=== PATIENT | female | born 1970 | race Caucasian/White ===

== ENCOUNTER → 2019-06-21 | Outpatient (CLI) | payer SELFPAY | PROVIDERS: Family Provider Family Medicine; Visit Provider Internal Medicine Rheumatology | DX: M16.0 Bilateral primary osteoarthritis of hip (principal) | CPT/HCPCS: 73521; 73562 ×2 ==

== ENCOUNTER → 2019-07-07 10:56 | Outpatient (BNVA) | payer BC, SELFPAY | PROVIDERS: Family Provider Family Medicine; PCP Family Medicine; Visit Provider Internal Medicine Rheumatology | DX: M35.3 Polymyalgia rheumatica (principal); R70.0 Elevated erythrocyte sedimentation rate; Z79.899 Other long term (current) drug therapy; M70.61 Trochanteric bursitis, right hip; M70.62 Trochanteric bursitis, left hip; M10.9 Gout, unspecified; E66.01 Morbid (severe) obesity due to excess calories; Z68.43 Body mass index [BMI] 50.0-59.9, adult; Y93.9 Activity, unspecified | CPT/HCPCS: 36415; 85651; 86140; 99214 ==

== ENCOUNTER → 2019-08-18 14:43 | Outpatient (BNVA) | payer BC, SELFPAY | PROVIDERS: Family Provider Family Medicine; PCP Family Medicine; Visit Provider Internal Medicine Rheumatology | DX: M35.3 Polymyalgia rheumatica (principal); M10.9 Gout, unspecified; Z79.899 Other long term (current) drug therapy; R70.0 Elevated erythrocyte sedimentation rate; M17.0 Bilateral primary osteoarthritis of knee; M16.0 Bilateral primary osteoarthritis of hip | CPT/HCPCS: 36415; 84550; 99214 ==

== ENCOUNTER → 2019-11-30 09:32 | Outpatient (BNVA) | payer BC, SELFPAY | PROVIDERS: Family Provider Family Medicine; PCP Family Medicine; Visit Provider Internal Medicine Rheumatology | DX: Z79.899 Other long term (current) drug therapy (principal) | CPT/HCPCS: 36415; 80076; 82565; 85025; 85651; 86140 ==

== ENCOUNTER → 2019-12-03 10:06 | Outpatient (BNVA) | payer BC, SELFPAY | PROVIDERS: Family Provider Family Medicine; PCP Family Medicine; Visit Provider Internal Medicine Rheumatology | DX: M35.3 Polymyalgia rheumatica (principal); Z79.899 Other long term (current) drug therapy; M10.9 Gout, unspecified; M70.61 Trochanteric bursitis, right hip; M70.62 Trochanteric bursitis, left hip; E66.01 Morbid (severe) obesity due to excess calories; Z68.43 Body mass index [BMI] 50.0-59.9, adult; E55.9 Vitamin D deficiency, unspecified; Y93.9 Activity, unspecified | CPT/HCPCS: 99214 ==

== ENCOUNTER → 2020-03-13 10:56 | Outpatient (BNVA) | payer BC, SELFPAY | PROVIDERS: Family Provider Family Medicine; PCP Family Medicine; Visit Provider Internal Medicine Rheumatology | DX: Z79.899 Other long term (current) drug therapy (principal) | CPT/HCPCS: 36415; 85025 ==

== ENCOUNTER → 2020-03-27 15:10 | Outpatient (BNVA) | payer BC, SELFPAY | PROVIDERS: Family Provider Family Medicine; PCP Family Medicine; Visit Provider Internal Medicine Rheumatology | DX: Z79.899 Other long term (current) drug therapy (principal) | CPT/HCPCS: 36415; 80076; 82565; 85025; 85651; 86140 ==

== ENCOUNTER → 2020-04-17 11:43 | Outpatient (BNVA) | payer BC, SELFPAY | PROVIDERS: Family Provider Family Medicine; PCP Family Medicine; Visit Provider Internal Medicine Rheumatology | DX: M35.3 Polymyalgia rheumatica (principal); Z79.899 Other long term (current) drug therapy; M10.9 Gout, unspecified; E66.01 Morbid (severe) obesity due to excess calories; R70.0 Elevated erythrocyte sedimentation rate; Z68.43 Body mass index [BMI] 50.0-59.9, adult; E55.9 Vitamin D deficiency, unspecified; Z79.52 Long term (current) use of systemic steroids; M17.0 Bilateral primary osteoarthritis of knee; M16.0 Bilateral primary osteoarthritis of hip | CPT/HCPCS: 99214 ==

== ENCOUNTER → 2021-05-15 11:12 | Outpatient (BNVA) | payer BC, SELFPAY | PROVIDERS: Family Provider Family Medicine; PCP Family Medicine; Visit Provider Internal Medicine Rheumatology | DX: M35.3 Polymyalgia rheumatica (principal); M10.9 Gout, unspecified; M15.9 Polyosteoarthritis, unspecified; Z79.899 Other long term (current) drug therapy; Z79.52 Long term (current) use of systemic steroids; E55.9 Vitamin D deficiency, unspecified; E66.9 Obesity, unspecified; Z68.43 Body mass index [BMI] 50.0-59.9, adult | CPT/HCPCS: 99214 ==

== ENCOUNTER 2022-07-15 14:51 | Outpatient (CLI) | payer BC, SELFPAY ==
--- NOTE | 2022-07-15 15:06 | MR_ITS ---
WS: [id number] MRI THORACIC SPINE WITHOUT CONTRAST TECHNIQUE: Sagittal T1, T2 and STIR imaging. Axial T2 imaging. Noncontrast imaging obtained. CLINICAL INFORMATION: MID BACK PAIN COMPARISON: None. FINDINGS: Mild thoracic kyphosis. No acute compression. No high-grade central canal narrowing. Incidental heman gioma T9 vertebral body. Tiny shallow protrusions T5-T6 and T6-T7. No significant disc extrusions or protrusions. Cord signal is normal. Minimal chronic anterior wedging at T4 and T5. No endplate edema. Mild facet arthropathy in the lower thoracic spine. Adrenal glands are normal. Normal caliber thorac ic aorta. Normal prevertebral soft tissues Tiny disc osteophyte protrusions in the cervical spine at C5-C6 and C6-C7 with mild central canal steve nosis. MR/MR thoracic spin wo con* [id number] IMPRESSION: 1. Mild thoracic kyphosis. No acute compression. No high-grade central canal s tenosis. 2. Cord signal is normal. No significant central canal stenosis. 3. Minimal chronic anterior wedging T4 and T5. 4. Tiny disc osteophyte protrusions in the cervical spine at C5-C6 and C6-C7 w ith mild central canal stenosis.
== END 2022-07-15 14:52 | disposition home or self-care (01) ==
PROVIDERS: PCP Family Medicine; Visit Provider Nurse Practitioner Family
DX: M54.9 Dorsalgia, unspecified (principal)
CPT/HCPCS: 72146

== ENCOUNTER 2023-08-11 07:47 | Outpatient (CLI) | payer BC, SELFPAY ==
--- NOTE | 2023-08-11 08:00 | MR_ITS ---
WS: [id number] MRI BRAIN WITH AND WITHOUT CONTRAST HISTORY: M54.9 - Dorsalgia, unspecified COMPARISON: None available. TECHNIQUE: Multiplanar imaging performed through the brain with MultiHance 20 ml's IV. No acute infarcts are seen. Delgadillo-white matter differentiation is well preserved. There are a few scat tered T2 and FLAIR signal hyperintensities. These are predominantly in the posterior LEFT frontal lob e. No pericallosal white matter lesions. The upper cervical spine and brainstem are negative. Hippoca mpal formations are symmetric. No atrophy. No susceptibility artifacts or prior lacunar infarcts. Ventricles and extra-axial spaces are normal. Clivus and pituitary gland are normal. Visualized posterior fossa and brainstem are also normal. Postcontrast images are negative for masses or vascular malformations. Dural venous sinuses are normal. Paranasal sinuses: Well aerated with no significant disease. Mastoid air cells: Normal. Calvarium and scalp: Normal. IMPRESSION: 1. Normal diffusion imaging. No ischemia or acute infarct. 2. There are a few white matter lesions in the posterior LEFT frontal lobe. Distribution is more lik franky from small vessel ischemic disease than other etiologies. 3. No pericallosal white matter lesions. 4. No masses or abnormal enhancement. 5. Normal hippocampal formations.
--- NOTE | 2023-08-11 08:45 | MR_ITS ---
WS: [id number] MRI LUMBAR SPINE WITH AND WITHOUT CONTRAST. HISTORY: M54.9 - Dorsalgia, unspecified, bilateral leg weakness for 6 months. COMPARISON: MRI thoracic spine 07/15/2022 TECHNIQUE: Sagittal and axial multisequence imaging is submitted. Postcontrast imaging MultiHance 20 mL IV. Reidentified are small osteophytes or disc protrusions at C5-6 and C6-7 with mild encroachment upon t he central canal. Very mild anterior wedging of T4 and T5. Benign hemangioma at T9. Increase in the lumbar lordosis. Posterior lumbar alignment is normal. No fractures. No marrow edema. Disc spaces and vertebral body heights are well-preserved. Conus terminates normally at L1-2 disc level. L1-L2: Normal. L2-L3: Mild ligamentum flavum and facet arthritis. No stenosis. L3-L4: Mild facet arthritis. No stenosis. L4-L5: Very mild annular disc bulging. There is a very shallow annular tear in the LEFT foramen. Mild ligamentum flavum and facet arthritis. Small amount of fluid in the facet joints, RIGHT greater than LEFT. Mild central, bilateral subarticular recess and foraminal stenosis. L5-S1: Mild annular disc bulging and facet arthritis. Greater facet joint arthritis on the RIGHT. Sma ll amount of fluid in the facet joints. Very mild foraminal encroachment. Paravertebral soft tissues are normal. IMPRESSION: 1. No high-grade central or foraminal stenosis in the lumbar spine. 2. L4-5: Very mild central, bilateral subarticular recess and foraminal stenosis. Small amount of fl uid in the facet joints. 3. Very minimal foraminal stenosis at L5-S1. 4. Mild facet joint arthritis throughout the lumbar spine but greatest at L4-5.
[2023-08-11] MEDS: gadobenate dimeglumine 20 mL vial IV (10:36)
== END 2023-08-11 07:48 | disposition home or self-care (01) ==
PROVIDERS: PCP Nurse Practitioner Family; Visit Provider Psychiatry & Neurology Neurology
DX: M54.9 Dorsalgia, unspecified (principal); R29.898 Other symptoms and signs involving the musculoskeletal system; M54.50 Low back pain, unspecified; M65.88 Other synovitis and tenosynovitis, other site; G93.9 Disorder of brain, unspecified
CPT/HCPCS: 70553; 72158; A9577